=== PATIENT | male | born 1980 | race Two or more races ===

== ENCOUNTER 2023-07-26 15:22 | Emergency (ER) | payer MEDICAID, OTHER ==
[~2023-07-26] VITALS: Ht 177.8 cm; Wt 121.9 kg
[2023-07-26] MEDS ORDERED: HYDROcodone-ACET 10/325MG TAB PO ONE (16:15)
[2023-07-26 17:10] LABS: Urine Bacteria NONE SEEN /hpf (None Seen); Urine Blood Negative /uL (Negative); Urine Clarity Clear (Clear); Urine Color Yellow (Yellow); Urine Protein, UAD TRACE (Negative); Urine Specific Gravity 1.042 (1.001-1.035); Urine Urobilinogen Normal (Negative); Urine WBC 8 /hpf (0 - 3)
[2023-07-26 17:17] LABS: Basophils # (auto) 0.1 10 ^3/uL (0-0.2); Basophils % (auto) 0.5 % (0.0-2.0); Eosinophils # (auto) 0.1 10 ^3/uL (0-0.8); Hematocrit 54.4 % (41.0-53.0); Hemoglobin 17.9 g/dL (13.5-17.5); Lymphocytes # (auto) 1.8 10 ^3/uL (0.4-5.4); Lymphocytes % (auto) 12.6 % (10.0-50.0); Mean Corpuscular Hemoglobin 29.6 pg (28.0-32.0); Mean Corpuscular Hgb Conc. 32.9 g/dL (32.0-36.0); Mean Corpuscular Volume 89.8 fL (80.0-100.0); Monocytes # (auto) 1.2 10 ^3/uL (0-1.3); Neutrophils # (auto) 11.4 10 ^3/uL (1.6-8.6); Neutrophils % (auto) 77.9 % (37.0-80.0); Nucleated Red Blood Cells % 0.1 %; Red Blood Cells 6.06 10^6/uL (4.5-5.90); White Blood Cell 14.6 10^3/uL (4.4-10.8)
[2023-07-26 17:19] LABS: Alanine Aminotransferase 13 U/L (7-40); Albumin 4.8 g/dL (3.2-4.8); Alkaline Phosphatase 98 U/L (46-116); Anion Gap 8 (5-15); Aspartate Aminotransferase 12 U/L (13-40); BUN/Creatinine Ratio 20.9 (10.0-20.0); Bilirubin, Total 1.9 mg/dL (0.2-1.0); Blood Urea Nitrogen 18 mg/dL (9-23); Calcium 9.6 mg/dL (8.5-10.1); Carbon Dioxide 27 mmol/L (20-30); Chloride 100 mmol/L (98-107); Glucose 118 mg/dL (74-106); Potassium 3.7 mmol/L (3.5-5.1); Sodium 135 mmol/L (136-145); Total Protein 7.5 g/dL (5.7-8.2)
[2023-07-26 17:30] LABS: Platelet Estimate Decreased
[2023-07-26 17:31] LABS: Large Platelets FEW
[2023-07-26] MEDS ORDERED: KETOROLAC TROMETH 60MG/2ML VIAL IM ONE (18:45)
[2023-07-26] MEDS ORDERED: CEPH500C PO (18:52)
[2023-07-26] MEDS ORDERED: PERCOT PO (18:52)
[2023-07-26] MEDS ORDERED: IBUP-1455 PO (18:52)
[2023-07-26 21:48] VITALS: BP 119/80; PULSE 100; RESP 16; TEMP 98.6; O2SAT 98
== END 2023-07-26 21:57 | disposition home or self-care (01) ==
LOC: ER 15:22
DX: N43.3 Hydrocele, unspecified (principal); N39.0 Urinary tract infection, site not specified
CPT/HCPCS: 36415; 76870; 80053; 81001; 85025; 96372; 99285; J1885